=== PATIENT | female | born 1935 | race Caucasian/White ===

== ENCOUNTER → 2017-05-01 | Outpatient (CLI) | payer MEDICARE ==
[~2017-05-01] MED LIST: ALENDRONATE SOD70 MG PO; CALCIUM600 MG PO; DELTASONE DPS1 MG PO; DELTASONE DPS5 MG PO; MACROBID100 MG PO; METOPROLOL TART25 MG PO; MOTRIN-DPS400 MG PO; OMEGA-3 DPS1000 MG PO; PERCOCET 5-3251 EACH PO; SENOKOT8.6 MG PO; THERA1 EACH PO
== END | disposition home or self-care (01) ==
LOC: RAD.S 12:53
DX: M79.89 Other specified soft tissue disorders (principal)